=== PATIENT | female | born 1980 | race Caucasian/White ===

== ENCOUNTER → 2017-01-20 | Outpatient (CLI) | payer BC | LOC: EEVIPCON 12:15 → FIMAGING 12:15 | PROVIDERS: ATTEND Obstetrics & Gynecology | DX: O99.282 Endocrine, nutritional and metabolic diseases complicating pregnancy, second trimester (principal); O36.5120 Maternal care for known or suspected placental insufficiency, second trimester, not applicable or unspecified; O09.522 Supervision of elderly multigravida, second trimester; E03.9 Hypothyroidism, unspecified; Z3A.21 21 weeks gestation of pregnancy ==

== ENCOUNTER → 2017-04-03 | Outpatient (CLI) | payer BC | LOC: FIMAGING 12:15 | PROVIDERS: ATTEND Obstetrics & Gynecology | DX: O09.513 Supervision of elderly primigravida, third trimester (principal); Z3A.31 31 weeks gestation of pregnancy ==